=== PATIENT | female | born 1965 | race Caucasian/White ===

== ENCOUNTER → 2018-10-29 09:55 | Outpatient (CLI) | payer BC, SELFPAY ==
[2018-10-08 10:27] VITALS: BMI 19.5
--- NOTE | 2018-10-29 09:59 | ECHOD_ITS ---
Procedure This was a 2D Doppler, Color Flow transthoracic echocardiogram. The exam was of adequate technical quality. Exam performed in department. Left Ventricle Normal LV size. Left ventricular systolic function is normal. The estimated ejection fraction is 60 %. No evidence for diastolic dysfunction. No regional wall motion abnormalities noted. Right Ventricle Normal RV size. Normal systolic function. Atria Normal left atrium. Normal right atrium. No doppler evidence for ASD. Mitral Valve There is no mitral annular calcification. Normal mitral valve. Trivial mitral valve insufficiency. Tricuspid Valve Normal tricuspid valve. Mild (1+) tricuspid valve insufficiency. Right ventricular systolic pressure estimated to be 24 mmHg. Aortic Valve Trisinus/trileaflet aortic valve. Mild diffuse aortic valve thickening. Pulmonic Valve The pulmonic valve is not well visualized. Great Vessels Normal sized aortic root. Pericardium/Pleural No pericardial effusion. MMode/2D Measurements & Calculations LVIDd: 3.6 cm IVSd: 0.75 cm Ao root diam: 3.6 cm LVIDs: 2.5 cm LVPWd: 0.88 cm RVDd: 2.4 cm FS: 32.0 % LAV(MOD-bp): 41.6 ml LA A4 area: 14.4 cm2 LA dimension(2D): 2.4 cm LAV(MOD-bp) Indexed: 28.0 ml/m2 LAV(MOD-sp2): 39.1 ml LAV(MOD-sp4): 39.8 ml RA A4 area: 14.2 cm2 Doppler Measurements & Calculations MV E max koko: 85.0 cm/sec Lat Peak E' Koko: 11.2 cm/sec Med Peak E' Koko: 11.7 cm/sec MV A max koko: 51.9 cm/sec E/E' lat: 7.6 E/E' med: 7.3 MV E/A: 1.6 Ao V2 max: 89.9 cm/sec LV V1 max: 76.3 cm/sec PA V2 max: 66.2 cm/sec Ao max P.2 mmHg LV V1 max P.3 mmHg TR max koko: 225.8 cm/sec TR max P.5 mmHg Interpretation Summary Left ventricular systolic function is normal. The estimated ejection fraction is 60 %. Trivial mitral valve insufficiency. Mild (1+) tricuspid valve insufficiency. Mild diffuse aortic valve thickening. Right ventricular systolic pressure estimated to be 24 mmHg. No evidence for diastolic dysfunction. Ordering Physician: Evan Hendricks Referring Physician: Jackson Oates Performed By: Afia Mohamud, NADIACS, RVT
--- NOTE | 2018-10-29 10:05 | AAVD_ITS ---
Reason For Study: palpable abdominal aorta Aorta Measurements Aorta Doppler Measurements Proximal aorta measures1.40 x 1.38cm. in cross- Peak systolic flow velocities within the proximal sectional axis. aorta measure 108 cm/sec. Proximal aorta measures1.36cm. in longitudinal Peak systolic flow velocities within the mid aorta axis. measure 93.9 cm/sec. Mid aorta measures1.33 x 1.43cm. in cross- Peak systolic flow velocities within the distal sectional axis. aorta measure 94.9 cm/sec. Mid aorta measures1.3.9cm. in longitudinal axis. Distal aorta measures1.42 x 1.50cm. in cross- sectional axis. Distal aorta measures1.39cm. in longitudinal axis. Left Iliac Artery Left iliac artery measures .835 cm. in the longitudinal axis. Left iliac artery measures .775 x .785 cm. in the cross-sectional axis. Peak systolic velocity in the left iliac artery measures 83.0 cm/sec. Right Iliac Artery Right iliac artery measures .685 cm. in the longitudinal axis. Right iliac artery measures .698 x .734 cm. in the cross-sectional axis. Peak systolic velocity in the right iliac artery measures 116 cm/sec. Procedure The exam was diagnostic. Exam performed in department. Interpretation Summary 1. no aortoiliac stenosis or aneurysm. Ordering Physician: Evan Hendricks Performed By: Anand Pisano RVT
--- NOTE | 2018-11-02 13:05 | STRESSREP ---
Stress Test Report Date: 10-29-2018 Procedure: Exercise tolerance test Indications: Palpitations, chest discomfort Consent: Per the patient Procedure: The patient exercised on a Yuan protocol for 11 minutes completing Stage 3 and 2 minutes of Stage II achieving a peak heart rate of 142 bpm (86 % predicted maximal heart rate) with a peak blood pressure 118/68 mmHg and a peak MET capacity of approximately 13 MET's. The baseline ECG demonstrated pannus bradycardia. The peak exercise ECG demonstrated no obvious ECG changes. There was an isolated PVC during exercise. The functional capacity was considered good. The patient had no complaint of chest discomfort during exercise or recovery. The examination was discontinued secondary to fatigue. Impression: 1. Technically adequate (percent predicted maximal heart rate greater than 85%) exercise tolerance test 2. Peak exercise ECG with no obvious ECG change 3. There was an isolated PVC during exercise This note was generated with [employer] software. It may contain incorrect words, spelling, and punctuation that were not noted in checking the note before signing.
== END ==
PROVIDERS: Family Provider Family Medicine; PCP Family Medicine; Referring Provider Internal Medicine Cardiovascular Disease; Visit Provider Internal Medicine Cardiovascular Disease
DX: R00.2 Palpitations (principal)
CPT/HCPCS: 93017; 93306; 93978

== ENCOUNTER → 2019-01-01 | Outpatient (CLI) | payer BC, SELFPAY ==
[2018-12-30 11:34] VITALS: BMI 18.9
[2019-01-01 07:24] LABS: Hematocrit 39.9 % (37-47); Hemoglobin 13.6 g/dl (12.0-15.0); Mean Corp Hgb Conc 34.1 g/gl (32-36); Mean Corpuscular Hgb 32.2 pg (27.0-32.0); Mean Corpuscular Volume 94.3 fL (81-99); Mean Platelet Vol. 9.6 fl (6.2-12.0); Platelet Count 346 K/mm3 (150-450); RBC Distribution Width CV 13.5 % (11.6-14.6); RBC Distribution Width SD 44.8 fl (35.1-43.9); Red Blood Count 4.23 M/mm3 (4.2-5.4); White Blood Count 4.2 K/mm3 (4.4-11.0)
[2019-01-01 07:29] LABS: Scan Indicated on CBC? Y/N NO
[2019-01-01 08:00] LABS: Anion Gap 6 (5-15); BUN 17 mg/dL (7-18); BUN/Creat Ratio 23.4 RATIO (10-20); Calcium,Total 9.2 mg/dL (8.5-10.1); Chloride 105 mmol/L (98-107); Creatinine, Serum 0.73 mg/dL (0.55-1.02); EST Glomerular Filtration Rate 88 mL/min (>60); Est Glom Filt Rate - Afr Amer 106 mL/min (>60); Glucose 97 mg/dL (74-106); Potassium 4.2 mmol/L (3.5-5.1); Sodium Level 140 mmol/L (136-145)
== END | disposition home or self-care (01) ==
LOC: LAB 06:18
PROVIDERS: Family Provider Family Medicine; PCP Family Medicine; Referring Provider Internal Medicine Cardiovascular Disease; Visit Provider Internal Medicine Cardiovascular Disease
DX: R00.0 Tachycardia, unspecified (principal); R00.2 Palpitations
CPT/HCPCS: 36415; 80048; 85027

== ENCOUNTER 2019-01-05 07:22 | Day surgery (SDC) | payer BC, SELFPAY ==
[2018-12-30 11:34] VITALS: BMI 18.9
--- NOTE | 2019-01-01 06:48 | RAD_ITS ---
STUDY: X-RAY CHEST REASON FOR EXAM: Female, 53 years old. Chest monitor placement clearance. TECHNIQUE: PA and lateral chest COMPARISON: None. FINDINGS: The lungs are clear and expanded. Normal cardiomediastinal silhouette, celina and pleural margins. No acute osseous or upper abdominal process. RAD/Chest PA and Lateral IMPRESSION: No acute cardiopulmonary process. Electronically Signed: Miguel A Banda MD at 17:21 EDT Tel , Service support ,
[2019-01-01 10:08] VITALS: BMI 18.9
--- NOTE | 2019-01-05 08:24 | CL.IE_ITS ---
Patient: VIRGEN LAKHANI Study Date: 01/05/2019 Performing: Avel Marinelli MD : 1965 Age: 53 Gender: female PROCEDURES PERFORMED [id number] OF LOOP RECORDER INDICATIONS Syncope PROCEDURE DETAILS The patient was brought to the Catheterization Lab in the postabsorptive nonsedated state. Infor med consent was obtained prior to the procedure. Local anesthetic was given subcutaneously to the le ft upper chest area with Lidocaine 2%. Incision was made to the left upper chest. ICM Reveal LINQ was inserted into the pocket. Steri-strips applied to Lt chest area. The patient tolerated the procedur e well. Estimated Blood Loss: < 10 mls IMPLANTED / EX-PLANTED DEVICES IMPLANTED DEVICE(S): ICM Reveal LINQ - Armhole Baster Hand: Movie Mouth, Model # [id number] Serial # [id number] DEVICE PARAMETERS CONCLUSIONS / RECOMMENDATIONS Device Conclusions: Successful implantation of a patient activated loop recorder. Device Recommendations: Follow up with Primary Care Physician PROCEDURE MEDICATIONS Versed 1 mg IV Oxygen: 2 L/min via nasal cannula Ancef 1 Gm IV @ 01/05/2019 08:10:10 Signed By Avel Marinelli MD On 01/05/2019 08:23:43 Avel Marinelli MD
== END 2019-01-05 09:25 | disposition home or self-care (01) ==
LOC: CLSP 07:23
PROVIDERS: Family Provider Family Medicine; PCP Family Medicine; Referring Provider Internal Medicine Cardiovascular Disease; Visit Provider Internal Medicine Cardiovascular Disease
DX: R00.2 Palpitations (principal); R00.0 Tachycardia, unspecified; K57.90 Diverticulosis of intestine, part unspecified, without perforation or abscess without bleeding; Z87.891 Personal history of nicotine dependence
CPT/HCPCS: 33285; 71046; 99152; J7040

== ENCOUNTER → 2019-09-23 08:17 | Outpatient (CLI) | payer BC, SELFPAY ==
[2019-07-14 09:58] VITALS: BMI 19.6
--- NOTE | 2019-09-23 08:18 | BI_ITS ---
MAMMOGRAPHY - BILATERAL SCREENING REASON FOR EXAM: Female, 54 years old. Routine annual screening examination. PERTINENT HISTORY: Non-contributory. TECHNIQUE: Digital bilateral breast joshua (3D mammographic acquisition) in the CC and MLO projections. 2-D mediolateral oblique (MLO) and craniocaudad (CC) views of both breasts were obtained. CAD: Full Field Digital Mammography with Computer Added Detection was performed. COMPARISON: Comparison is made with prior outside examination dated March 11, 2017. FINDINGS: Breast Composition: There are scattered areas of fibroglandular density. There are no dominant masses or suspicious calcifications. A loop recording device is seen in the deep mid medial portion of the left breast. No other significant abnormalities are identified. There has been no significant change since the prior study. BI/SCREEN MAMM (CAD) W/JOSHUA BILAT IMPRESSION: Stable bilateral screening mammogram. Yearly follow-up mammogram recommended. (A) ASSESSMENT CATEGORY: BIRADS Category 1: Negative. A letter regarding these results will be sent to the patient by the facility within 30 days. Approximately 10% of breast cancers are not detected by mammography. A normal mammogram should not delay biopsy of a clinically suspicious abnormality. [id number] Electronically Signed: Estrada Coats, at 9:12 EST , Service support ,
== END ==
PROVIDERS: PCP Family Medicine; Referring Provider Obstetrics & Gynecology; Visit Provider Obstetrics & Gynecology
DX: Z12.31 Encounter for screening mammogram for malignant neoplasm of breast (principal)
CPT/HCPCS: 77063; 77067

== ENCOUNTER → 2020-08-16 08:30 | Outpatient (CLI) | payer BC, SELFPAY ==
[2020-01-26 13:21] VITALS: BMI 18.9
--- NOTE | 2020-08-16 08:35 | EKG12_ITS ---
Test Reason : PRE OP Blood Pressure : / mmHG Vent. Rate : 063 BPM Atrial Rate : 063 BPM P-R Int : 152 ms QRS Dur : 082 ms QT Int : 390 ms P-R-T Axes : 049 087 082 degrees QTc Int : 399 ms Normal sinus rhythm Normal ECG Confirmed by HILTON WILSON, CARMEN ([id number]), health editor YUVAL GONSALEZ ([id number]) on 08/17/2020 10:42:10 AM Referred By: Armand Pineda Confirmed By:CARMEN CANELA MD
[2020-08-16 09:13] LABS: Hematocrit 39.6 % (37-47); Hemoglobin 13.2 g/dL (12.0-15.0); Mean Corp Hgb Conc 33.3 g/dL (32-36); Mean Corpuscular Hgb 32.5 pg (27.0-32.0); Mean Corpuscular Volume 97.5 fL (81-99); Mean Platelet Vol. 8.8 fl (6.2-12.0); Platelet Count 407 K/mm3 (150-450); RBC Distribution Width CV 13.2 % (11.6-14.6); RBC Distribution Width SD 47.4 fl (35.1-43.9); Red Blood Count 4.06 M/mm3 (4.2-5.4); White Blood Count 5.8 K/mm3 (4.4-11.0)
[2020-08-16 09:59] LABS: Anion Gap 4 (5-15); BUN 14 mg/dL (7-18); BUN/Creat Ratio 21.7 RATIO (10-20); Calcium,Total 9.2 mg/dL (8.5-10.1); Chloride 107 mmol/L (98-107); Creatinine, Serum 0.64 mg/dL (0.55-1.02); EST Glomerular Filtration Rate 101 mL/min (>60); Est Glom Filt Rate - Afr Amer 122 mL/min (>60); Glucose 91 mg/dL (74-106); Potassium 4.3 mmol/L (3.5-5.1); Sodium Level 140 mmol/L (136-145)
== END ==
PROVIDERS: PCP Family Medicine; Referring Provider Physician Assistant; Visit Provider Physician Assistant
DX: Z01.810 Encounter for preprocedural cardiovascular examination (principal); Z01.818 Encounter for other preprocedural examination; Z11.59 Encounter for screening for other viral diseases
CPT/HCPCS: 36415; 80048; 85027; 87635; 93005; C9803; U0005; U0003

== ENCOUNTER → 2021-04-11 09:28 | Outpatient (CLI) | payer BC, SELFPAY ==
[2020-09-25 16:07] VITALS: BMI 18.4
--- NOTE | 2021-04-11 09:35 | BD_ITS ---
STUDY: DUAL ENERGY X-RAY ABSORPTIOMETRY / DXA REASON FOR EXAM: Female, 56 years old. Screening TECHNIQUE: Bone Mineral Density (BMD) measurements of lumbar spine and bilateral hips were obtained. COMPARISON: None. FINDINGS: Lumbar Spine (L1-L4): g/cm2 (0.967) / T-score (-0.7) / Z-score (0.6) Findings are suggestive of normal bone density with a low fracture risk. Left Femur Total: g/cm2 (0.808) / T-score (-1.1) / Z-score (-0.2) Left Femoral Neck: g/cm2 (0.761) / T-score (-0.8) / Z-score (0.4) Right Femur Total: g/cm2 (0.832) / T-score (-0.9) / Z-score (0.0) Right Femoral Neck: g/cm2 (0.771) / T-score (-0.7) / Z-score (0.5) BD/Dexa Bone Density Study IMPRESSION: The patient is considered osteopenic as outlined below according to World Luis Organization (WHO) criteria with a low fracture risk. Reference Information: The T-score is the number of standard deviations above or below the standard which is normal for young adults at their peak bone mineral density. The World Health Organization (WHO) interprets the T-scores as follows: Above -1 Normal bone density Between -1 and -2.5 Osteopenia Equal to / or below -2.5 Osteoporosis As a practical clinical guideline, osteopenia may be graded as follows: Mild -1 through -1.5 Moderate -1.6 through -2.0 Severe -2.1 through -2.4 The Z-score is the number of standard deviations above or below age-matched controls. A Z-score of less than -1.5 would be considered abnormal. References: 1. NIH Osteoporosis and Related Bone Diseases www osteo.org 2. International Society for Clinical Densitometry www iscd.org 3. National Osteoporosis Foundation www nof.org Electronically Signed: Estrada Coats MD at 14:23 EDT , Service support ,
--- NOTE | 2021-04-11 09:47 | BI_ITS ---
MAMMOGRAPHY - BILATERAL SCREENING 3-D TOMOSYNTHESIS REASON FOR EXAM: Female, 56 years old. screening PERTINENT HISTORY: No significant family history. TECHNIQUE: 2-D mammograms and 3-D Tomosynthesis of the breast (s) were performed. CAD was performed. COMPARISON: 09/23/2019 FINDINGS: The breast composition is composed of scattered fibroglandular density. Scattered benign calcifications are seen. No dense spiculated masses or suspicious microcalcifications are identified. No architectural distortion is identified. There is no skin thickening or retraction. There has been no significant change since the prior study. BI/SCRN MAMM (CAD)W/JOSHUA BILAT IMPRESSION: No mammographic signs of malignancy. Routine yearly mammograms recommended. ASSESSMENT CATEGORY: BIRADS Category 1: Negative. A letter regarding these results will be sent to the patient by the facility within 30 days. FOLLOW UP RECOMMENDATION: Yearly follow up mammogram recommended. (A) Approximately 10% of breast cancers are not detected by mammography. A normal mammogram should not delay biopsy of a clinically suspicious abnormality. Electronically Signed: Miguel A Damon MD at 10:55 EDT Tel , Service support ,
== END ==
PROVIDERS: PCP Physician Assistant; Referring Provider Obstetrics & Gynecology; Visit Provider Obstetrics & Gynecology
DX: Z12.31 Encounter for screening mammogram for malignant neoplasm of breast (principal); E28.39 Other primary ovarian failure; R63.6 Underweight
CPT/HCPCS: 77063; 77067; 77080

== ENCOUNTER 2021-07-11 06:47 | Day surgery (SDC) | payer BC, SELFPAY ==
[2021-07-09 11:48] VITALS: BMI 18.0
--- NOTE | 2021-07-11 08:00 | CL.IE_ITS ---
Patient: VIRGEN LAKHANI Study Date: 07/11/2021 Performing: Avel Marinelli MD : 1965 Age: 56 Gender: female PROCEDURES PERFORMED [id number] OF LOOP RECORDER INDICATIONS palpitations,tachycardia PROCEDURE DETAILS The patient was brought to the Catheterization Lab in the postabsorptive nonsedated state. Infor med consent was obtained prior to the procedure. Local anesthetic was given subcutaneously to the le ft upper chest area with Lidocaine 2%. Incision was made to the left upper chest. ICM Loop Recorder w as removed. Steri-strips applied to left subclavicular incision. The patient tolerated the procedure well. Estimated Blood Loss: 5 ml's IMPLANTED / EX-PLANTED DEVICES DEVICE PARAMETERS CONCLUSIONS / RECOMMENDATIONS Device Conclusions: Successful removal of a patient activated loop recorder. Device Recommendations: Follow up with Primary Care Physician PROCEDURE MEDICATIONS Versed 1 mg IV Oxygen: 2 L/min via nasal cannula Ancef 1 Gm IV @ 07/11/2021 07:27:32 Signed By Avel Marinelli MD On 07/11/2021 08:00:06 Avel Marinelli MD
== END 2021-07-11 09:00 | disposition home or self-care (01) ==
LOC: CLSP 06:49
PROVIDERS: PCP Physician Assistant; Referring Provider Internal Medicine Cardiovascular Disease; Visit Provider Internal Medicine Cardiovascular Disease
DX: Z45.09 Encounter for adjustment and management of other cardiac device (principal); R00.2 Palpitations; R00.0 Tachycardia, unspecified; Z87.891 Personal history of nicotine dependence
CPT/HCPCS: 33286; 99152

== ENCOUNTER → 2021-07-18 | Outpatient (CLI) | payer BC, SELFPAY | END | disposition home or self-care (01) | LOC: LABSPEC 12:05 | PROVIDERS: PCP Physician Assistant; Referring Provider Nurse Practitioner Women's Health; Visit Provider Nurse Practitioner Women's Health | DX: R30.0 Dysuria (principal) | CPT/HCPCS: 87086; 87088; 87186 ==

== ENCOUNTER 2022-07-09 09:14 | Outpatient (CLI) | payer BC, SELFPAY ==
--- NOTE | 2022-07-09 09:16 | BI_ITS ---
MAMMOGRAPHY - BILATERAL SCREENING REASON FOR EXAM: Female, 57 years old. Routine annual screening examination. PERTINENT HISTORY: Non-contributory. TECHNIQUE: Digital bilateral breast joshua (3D mammographic acquisition) in the CC and MLO projections. 2-D mediolateral oblique (MLO) and craniocaudad (CC) views of both breasts were obtained. CAD: Full Field Digital Mammography with Computer Added Detection was performed. COMPARISON: Comparison is made with prior study dated 04/11/2021 and 09/23/2019. FINDINGS: Breast Composition: There are scattered areas of fibroglandular density. There are no dominant masses or suspicious calcifications. No other significant abnormalities are identified. There has been no significant change since the prior study. BI/SCRN MAMM (CAD)W/JOSHUA BILAT IMPRESSION: Stable bilateral screening mammogram. Yearly follow-up mammogram recommended. (A) ASSESSMENT CATEGORY: BIRADS Category 1: Negative. A letter regarding these results will be sent to the patient by the facility within 30 days. Approximately 10% of breast cancers are not detected by mammography. A normal mammogram should not delay biopsy of a clinically suspicious abnormality. [id number] Electronically Signed: Estrada Coats MD at 9:50 EST ,
== END 2022-07-09 23:59 | disposition home or self-care (01) ==
PROVIDERS: PCP Physician Assistant; Referring Provider Obstetrics & Gynecology; Visit Provider Obstetrics & Gynecology
DX: Z12.31 Encounter for screening mammogram for malignant neoplasm of breast (principal); R35.0 Frequency of micturition
CPT/HCPCS: 77063; 77067; 87077; 87086; 87088; 87186

== ENCOUNTER → 2022-09-17 | Outpatient (CLI) | payer BC, SELFPAY | END | disposition home or self-care (01) | LOC: LABSPEC 14:41 | PROVIDERS: PCP Physician Assistant; Referring Provider Obstetrics & Gynecology; Visit Provider Obstetrics & Gynecology | DX: R30.0 Dysuria (principal) | CPT/HCPCS: 87077; 87086; 87088; 87186 ==

== ENCOUNTER → 2023-07-10 | Outpatient (CLI) | payer BC, SELFPAY ==
--- NOTE | 2023-07-10 08:19 | BI_ITS ---
MAMMOGRAPHY - BILATERAL SCREENING REASON FOR EXAM: Female, 58 years old. Routine annual screening examination. PERTINENT HISTORY: Non-contributory. TECHNIQUE: Digital bilateral breast joshua (3D mammographic acquisition) in the CC and MLO projections. 2-D mediolateral oblique (MLO) and craniocaudad (CC) views of both breasts were obtained. CAD: Full Field Digital Mammography with Computer Added Detection was performed. COMPARISON: Comparison is made with prior examination of July 09, 2022 and April 11, 2021. FINDINGS: Breast Composition: There are scattered areas of fibroglandular density. There are no dominant masses or suspicious calcifications. No other significant abnormalities are identified. There has been no significant change since the prior study. BI/SCRN MAMM (CAD)W/JOSHUA BILAT IMPRESSION: Stable bilateral screening mammogram. Yearly follow-up mammogram recommended. (A) ASSESSMENT CATEGORY: BIRADS Category 1: Negative. A letter regarding these results will be sent to the patient by the facility within 30 days. Approximately 10% of breast cancers are not detected by mammography. A normal mammogram should not delay biopsy of a clinically suspicious abnormality. [id number] Electronically Signed: Estrada Coats MD at 12:20 EST ,
== END | disposition home or self-care (01) ==
LOC: OPBI 08:19
PROVIDERS: PCP Physician Assistant; Referring Provider Obstetrics & Gynecology; Visit Provider Obstetrics & Gynecology
DX: Z12.31 Encounter for screening mammogram for malignant neoplasm of breast (principal)
CPT/HCPCS: 77063; 77067

== ENCOUNTER 2024-03-25 12:36 | Emergency (ER) | payer OTHER, SELFPAY ==
[2024-03-25 12:37] VITALS: BP 116/77; PULSE 75; RESP 16; TEMP 36.8; O2SAT 100; BMI 19.7
--- NOTE | 2024-03-25 12:40 | EKG12_ITS ---
Test Reason : CHEST PRESSURE Blood Pressure : / mmHG Vent. Rate : 075 BPM Atrial Rate : 075 BPM P-R Int : 138 ms QRS Dur : 076 ms QT Int : 380 ms P-R-T Axes : 035 081 063 degrees QTc Int : 424 ms Normal sinus rhythm Nonspecific ST abnormality Abnormal ECG Confirmed by Mukul Salgado ([id number]), editorial assistant KHALIDA PARHAM ([id number]) on 03/29/2024 8:54:49 AM Referred By: COURTNEY/DREW Confirmed By:Mukul Salgado
--- NOTE | 2024-03-25 12:45 | RAD_ITS ---
INDICATION: chest pain EXAMINATION/TECHNIQUE: X-RAY - XR Chest 1 View COMPARISON: Prior study dated: 01/01/2019 FINDINGS: LINES/DEVICES: None. LUNGS: No consolidation, edema or effusion. No pneumothorax. MEDIASTINUM AND CARDIOVASCULAR STRUCTURES: Cardiac silhouette not enlarged. Central airways and mediastinal contour are unremarkable. BONES AND SOFT TISSUES: Unremarkable. RAD/Chest 1 View (Portable) IMPRESSION: No radiographic evidence of acute cardiopulmonary disease. Electronically Signed: Tanner Montero MD at 12:58 EDT ,
[2024-03-25 12:48] LABS: Absolute Lymphocyte Count 1.96 X10^3/uL (0.83-4.51); Absolute Neutrophil Count 4.2 X10^3/uL (2.0-7.7); Basophil# 0.04 X10^3/uL; Basophil% 0.6 % (0-1); Eosinophil# 0.01 X10^3/uL; Eosinophils% 0.2 % (0-5); Hematocrit 39.5 % (37-47); Hemoglobin 13.1 g/dL (12.0-15.0); Lymphocyte # 1.96 X10^3/ul (0.83-4.51); Lymphocyte % 29.5 % (19-41); Mean Corp Hgb Conc 33.2 g/dL (32-36); Mean Corpuscular Hgb 32.5 pg (27.0-32.0); Mean Platelet Vol. 8.7 fl (6.2-12.0); Monocyte# 0.43 X10^3/uL; Monocyte% 6.5 % (0-10); NRBC Flagged by Analyzer 0 % (0-5); Neutrophil # 4.19 X10^3/uL (2.7-7.7); Neutrophil % 62.9 % (47-70); Platelet Count 368 K/mm3 (150-450); RBC Distribution Width CV 13.3 % (11.6-14.6); RBC Distribution Width SD 48.6 fl (35.1-43.9); Red Blood Count 4.03 M/mm3 (4.2-5.4); White Blood Count 6.7 K/mm3 (4.4-11.0)
--- NOTE | 2024-03-25 12:56 | ED.VIS.CHEST ---
HPI History of Present Illness Chief Complaint: Chest Pain Detail of Chief Complaint: Air bubble in my chest resolved. Informant: patient Onset/Context/Timing Onset: Today and Hours Activity at onset: gradual Timing: Continuous and - (Now resolved.) Location: Substernal and - (And epigastric) Current Severity: Gone Maximum Severity: Mild Worsened By: Nothing Relieved By: Nothing Associated Symptoms: Negative for Nausea, Vomiting or Diaphoresis Narrative Narrative: 59-year-old female history of hemochromatosis and vertigo. Woke up this morning had vertigo. She said it intermittently for years. Had it worked up in the past. She went to work and while at work sitting at a desk had nonexertional chest discomfort. She describes it as an air bubble in my lower chest upper abdominal area. Lasted about an hour and since resolved. Denies any recent exertional chest pain or any exertional shortness of breath. No prior heart catheterization and does not remember any prior stress test. No history of DVT or PE or risk factors. No leg pain or swelling. No hemoptysis. No pleuritic pain. Prior Similar Symptoms: No Recent Illness/Hospitalization: No CVD Risk Factors: Negative for Hypertension, Diabetes or Hypercholesterolemia PE Risk Factors: Negative for Recent Travel/Surgery, Recent Immobilization, Prior DVT or PE, Cancer or OCP + Smoking + >/=35 TAD Risk Factors: Negative for Marfan's Syndrome [facility] Medical History Sinus tachycardia Palpitations Diverticular disease Allergy/AdvReac Type Severity Reaction Status Date / Time aspirin Allergy Mild stomach Verified 03/25/24 12:41 spasms codeine Allergy Mild stomach Verified 03/25/24 12:41 spasms Family History Mother Diabetes Myocardial infarction Atrial fibrillation Grandmother Cancer Father CAD (coronary artery disease) History of coronary artery bypass surgery Surgical History History of rotator cuff surgery (~08/2020) History of loop recorder (07/11/21) S/P colectomy History of total abdominal hysterectomy left elbow surgery bladder sling S/P carpal tunnel release S/P cholecystectomy Social History Smoking Status: Former smoker alcohol intake: current details: occasionally substance use type: does not use caffeine: Yes what type of physical activity do you participate in: running and other details: kick boxing frequency: 5-6 times per week seatbelt use: always do you feel safe at home: Yes additional social history: - Eduardo-Works at [employer] Patient owns [employer] [facility] ROS ROS ED ROS Narrative Denies recent illness. Constitutional Constitutional ED: Denies fever(s) Eyes Eyes: Reports none ENT ENT ED: Denies ear pain Cardiovascular Cardiovascular: Reports chest pain; Denies palpitations or racing heartbeat Respiratory/Chest Respiratory/Chest: Denies cough or dyspnea Gastrointestinal Gastrointestinal: Denies abdominal pain, constipation, diarrhea, nausea or vomiting Genitourinary Genitourinary ED: Denies dysuria or hematuria Musculoskeletal Musculoskeletal: Denies arthralgias Integumentary Denies abscess Neurologic Neurologic: Denies headache(s) Psychiatric Psychiatric: Denies anxiety Endocrine Endocrinology: Denies cold intolerance Hematologic/Lymphatic Hematologic/Lymphatic: Denies easy bleeding, easy bruising or lymphadenopathy Allergic/Immunologic Allergic/Immunologic ED: Denies mouth swelling, tongue swelling or urticaria EXAM Physical Exam Narrative Exam Narrative: Well-appearing 59-year-old female. Vital signs are stable afebrile. Pulse ox 100% on room air no signs of hypoxia. H EENT exam unremarkable. Neck nontender no JVD. Lungs clear to auscultation bilaterally. Heart regular rate rhythm rate about 75 no murmur. Chest wall and ribs nontender. Abdomen soft nontender. Normal bowel sounds no peritoneal signs. No right upper or right lower quadrant tenderness. No hernia or mass. No distention. Moving all 4 extremities. 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 Equal symmetrical radial pulses. Dorsi plantarflexion intact. Calves are nontender without edema or cords. Back nontender. She is awake alert. No focal motor deficits. Benign exam. at bedside. Const Vital Signs: 03/25/24 12:37 03/25/24 12:37 03/25/24 12:41 Temperature 98.2 F Temperature Source Oral Pulse Rate 75 Respiratory Rate 16 Respiratory Effort Blood Pressure 116/77 Blood Pressure Mean 90 Pulse Ox 100 Oxygen Delivery Method Room Air Room Air 03/25/24 12:41 03/25/24 13:37 03/25/24 14:00 Temperature Temperature Source Pulse Rate 71 72 Respiratory Rate 12 23 H Respiratory Effort Normal Blood Pressure 113/72 111/69 Blood Pressure Mean 85 83 Pulse Ox 98 97 Oxygen Delivery Method Room Air Room Air Positive well nourished and well developed; Negative for obese, cachectic, contractures or unkempt General Appearance ED: well developed and NAD; Negative for unkempt, cachectic, contractures or pallor Nutritional Appearance: Negative for cachectic or obese HEENT Reports TM's clear and moist mucous membranes normocephalic and atraumatic; Negative for trauma or tenderness Tympanic Membrane ED: Yes TM's clear Eyes PERRL and EOMs intact bilaterally General Eye ED: Negative for pale conjunctiva or scleral icterus Neck no lymphadenopathy, supple and no JVD General: Negative for tenderness Chest Wall inspection of chest normal and palpation of chest normal Chest: Negative for tenderness Resp normal respiratory effort and clear to auscultation bilaterally Effort and Inspection: Negative for respiratory distress Auscultation: Negative for rales, rhonchi, wheezes or diminished lung sounds Cardio regular rate, regular rhythm, S1 normal heart sound, S2 normal heart sound and no murmurs Rate: Negative for bradycardia or tachycardic Rhythm: Negative for abnormal rhythm Peripheral Pulses: pulses 2+ throughout GI normal to inspection, nondistended, normoactive bowel sounds, soft to palpation, non-tender, non-distended and no masses Back/Spine no CVA tenderness and no thoracic nor lumbar tenderness General Back: Negative for CVA tenderness Cervical Spine: Negative for cervical spine tenderness Extremity normal to inspection General Extremety ED: Negative for edema, pulses abnormal or tenderness General Extremity: Negative for edema or pulses abnormal Neuro oriented x3 and CN's II-XII intact bilaterally Sensorium / Orientation: awake, alert, oriented to person, oriented to place and oriented to time; Negative for confused, lethargic or stuporous Sensory Exam: No sensory level loss detected Motor Exam: strength 5/5 throughout; Negative for general weakness or strength abnormal Psych mental status grossly normal Appearance: Negative for unkempt Attitude: No agitated Mood & Affect: Negative for depressed, anxious or tearful Skin no rashes or lesions noted and no wounds General Skin Exam: Negative for jaundice, pallor or other Rashes: No rashes noted Trauma: Negative for abrasion, laceration or puncture Heart Score History: Slightly/Non-Suspicious ECG: Normal Age: >45 - <65 years Risk Factors: No Risk Factors Troponin: </= Normal Limit Score: 1 MDM MDM MDM Narrative Medical decision making narrative: 59-year-old female history of vertigo and vertiginous type symptoms. Positive Hallpike. Normal neurologic exam. She be given meclizine. She has atypical nonexertional chest discomfort think is little likely to be cardiac. She undergo a cardiac workup. I do not think she needs a CAT scan of her head. History & Record Review Discussion w/independent historian: Patient and Family Additional record(s) reviewed:: Prior inpatient record, Prior outpatient record, Prior ED visit and Prior labs Lab Data Attestation: I reviewed the patient's lab results. Lab results narrative: CBC unremarkable. White count of 6. H&H 13 and 39. Platelets 368 Chemistries show a gap of 8. Normal BUN and creatinine. Glucose 162. Initial troponin 3. 2-hour troponin is Chest x-ray unremarkable. Labs: Laboratory Results - last 24 hr 03/25/24 12:40 WBC 6.7 RBC 4.03 L Hgb 13.1 Hct 39.5 MCV 98.0 MCH 32.5 H MCHC 33.2 RDW Std Deviation 48.6 H RDW Coeff of Jose 13.3 Plt Count 368 MPV 8.7 Immature Gran % (Auto) 0.300 Neut % (Auto) 62.9 Lymph % (Auto) 29.5 [place] % (Auto) 6.5 Eos % (Auto) 0.2 Baso % (Auto) 0.6 Absolute Neuts (auto) 4.2 Absolute Lymphs (auto) 1.96 Nucleated RBC % 0 Sodium 138 Potassium 3.5 Chloride 103 Carbon Dioxide 27.0 Anion Gap 8 BUN 18 Creatinine 0.83 Estim Creat Clear Calc 56.74 Est GFR (MDRD) Af Amer 90 Est GFR (MDRD) Non-Af 75 BUN/Creatinine Ratio 21.8 H Glucose 162 H Calcium 8.7 Troponin I High Sens 3 Radiography Chest X-Ray - ED: 1 View, Read by ED Physician, Heart, Lungs, Mediastinum, Bony Structures and No Acute Disease Diagnostic Testing: Clinical Impression(s) from Imaging Studies Chest X-Ray 03/25/24 12:45 IMPRESSION: No radiographic evidence of acute cardiopulmonary disease. Electronically Signed: Tanner Montero MD at 12:58 EDT , Chest x-ray, portable, single view interpreted both by myself and the radiologist shows no acute abnormality. Normal cardiac silhouette. Normal mediastinum. Rhythm Strip Rhythm Strip: Sinus Rhythm Rate: 75 Ectopy: None EKG Initial EKG: Attestation: I personally reviewed and interpreted this EKG as follows: Interpretation: Sinus Rhythm and No Acute Injury Pattern Comments: Normal sinus rhythm rate is 75 no acute signs of WI or ischemia. Management Discussion w/another healthcare provider: Other Discharge Plan Triage Chief Complaint: Chest Pain ED Provider: Calvin Gutierrez Dx/Rx/DC Orders Primary Care Provider: Juaquin Hernandez Referrals: Juaquin Hernandez PA [Primary Care Provider] - Print Language: Tristanian
[2024-03-25 13:07] LABS: Anion Gap 8 (5-15); BUN 18 mg/dL (7-18); BUN/Creat Ratio 21.8 RATIO (10-20); Calcium,Total 8.7 mg/dL (8.5-10.1); Chloride 103 mmol/L (98-107); Creatinine, Serum 0.83 mg/dL (0.55-1.02); EST Glomerular Filtration Rate 75 mL/min (>60); Est Glom Filt Rate - Afr Amer 90 mL/min (>60); Estimated Creatinine Clearance 56.74 ml/min; Glucose 162 mg/dL (74-106); Potassium 3.5 mmol/L (3.5-5.1); Sodium Level 138 mmol/L (136-145); Troponin-I HS 3 pg/mL (3.0-54.0)
[2024-03-25 13:37] VITALS: BP 113/72; PULSE 71; RESP 12; O2SAT 98
[2024-03-25 14:00] VITALS: BP 111/69; PULSE 72; RESP 23; O2SAT 97
[2024-03-25 15:00] VITALS: BP 109/79; PULSE 67; RESP 17; O2SAT 96
[2024-03-25 15:18] LABS: Troponin-I HS < 3 pg/mL (3.0-54.0)
[2024-03-25 15:26] VITALS: BP 108/72; PULSE 62; RESP 15; TEMP 36.4; O2SAT 97
== END 2024-03-25 15:31 | disposition home or self-care (01) ==
PROVIDERS: Emergency Provider Emergency Medicine; PCP Physician Assistant; Visit Provider Emergency Medicine
DX: R07.9 Chest pain, unspecified (principal); Z87.891 Personal history of nicotine dependence; Z90.49 Acquired absence of other specified parts of digestive tract; Z90.710 Acquired absence of both cervix and uterus; R42 Dizziness and giddiness
CPT/HCPCS: 71045; 80048; 84484; 85025; 93005; 99284; A4216

== ENCOUNTER → 2024-07-23 | Outpatient (CLI) | payer OTHER, SELFPAY ==
--- NOTE | 2024-07-23 09:38 | BI_ITS ---
MAMMOGRAPHY - BILATERAL SCREENING REASON FOR EXAM: Female, 59 years old. Routine annual screening examination. PERTINENT HISTORY: Non-contributory. TECHNIQUE: Digital bilateral breast joshua (3D mammographic acquisition) in the CC and MLO projections. 2-D mediolateral oblique (MLO) and craniocaudad (CC) views of both breasts were obtained. CAD: Full Field Digital Mammography with Computer Added Detection was performed. COMPARISON: Comparison is made with prior study dated July 10, 2023 and July 09, 2022. FINDINGS: Breast Composition: There are scattered areas of fibroglandular density. There are no dominant masses or suspicious calcifications. No other significant abnormalities are identified. There has been no significant change since the prior study. BI/SCRN MAMM (CAD)W/JOSHUA BILAT IMPRESSION: Stable bilateral screening mammogram. Yearly follow-up mammogram recommended. (A) ASSESSMENT CATEGORY: BIRADS Category 1: Negative. A letter regarding these results will be sent to the patient by the facility within 30 days. Approximately 10% of breast cancers are not detected by mammography. A normal mammogram should not delay biopsy of a clinically suspicious abnormality. [id number] Electronically Signed: Estrada Coats MD at 10:14 EST ,
== END | disposition home or self-care (01) ==
LOC: OPBI 09:37
PROVIDERS: PCP Physician Assistant; Referring Provider Obstetrics & Gynecology; Visit Provider Obstetrics & Gynecology
DX: Z12.31 Encounter for screening mammogram for malignant neoplasm of breast (principal)
CPT/HCPCS: 77063; 77067

== ENCOUNTER 2024-09-27 11:16 | Emergency (ER) | payer OTHER, SELFPAY ==
[2024-09-27 11:17] VITALS: BP 117/78; PULSE 70; RESP 18; TEMP 36.9; O2SAT 100; BMI 19.7
--- NOTE | 2024-09-27 11:43 | EX.ED.DYSGE1 ---
HPI <RICARDO Newberry - Last Filed: 09/27/24 17:11> History of Present Illness Chief Complaint: Bite Narrative Narrative: Patient presenting today due to concerns for an infection resulting from a dog bite to her right hand. Her dog was stressed because of the storm last night and she was try to calm him down when he bit her right third finger yesterday evening. This morning, the area began looking red and she is now noticing streaking that is going up her right forearm. She has had chills but denies fevers. She denies a history of diabetes or any immunocompromising conditions. She has had no nausea or vomiting. Her tetanus is not up-to-date. PFSH <RICARDO Newberry - Last Filed: 09/27/24 17:11> [facility] Medical History Sinus tachycardia Palpitations Diverticular disease Home Medications ?Medication ?Instructions ?Recorded ?Last Taken ?Type meloxicam 7.5 mg tablet 7.5 mg PO QDAY 07/12/24 Unknown History amoxicillin 875 mg-potassium 875 mg PO Q12H #20 TABLETS 09/27/24 Unknown Rx clavulanate 125 mg tablet Allergy/AdvReac Type Severity Reaction Status Date / Time aspirin Allergy Mild stomach Verified 09/27/24 11:16 spasms codeine Allergy Mild stomach Verified 09/27/24 11:16 spasms Family History Mother Diabetes Myocardial infarction Atrial fibrillation Grandmother Cancer Father CAD (coronary artery disease) History of coronary artery bypass surgery Surgical History History of rotator cuff surgery (~08/2020) History of loop recorder (07/11/21) S/P colectomy History of total abdominal hysterectomy left elbow surgery bladder sling S/P carpal tunnel release S/P cholecystectomy Social History Smoking Status: Former smoker alcohol intake: current details: occasionally substance use type: does not use caffeine: Yes what type of physical activity do you participate in: running and other details: kick boxing frequency: 3-4 times per week seatbelt use: always do you feel safe at home: Yes additional social history: - Eduardo-Works at [employer] Patient owns [employer] <RICARDO Newberry - Last Filed: 09/27/24 17:11> ROS ED Constitutional Constitutional ED: Reports chills; Denies fever(s) Cardiovascular Cardiovascular: Denies chest pain Respiratory/Chest Respiratory/Chest: Denies cough or dyspnea Gastrointestinal Gastrointestinal: Denies abdominal pain, nausea or vomiting Musculoskeletal Musculoskeletal: Reports other Details: R hand pain Integumentary Reports other Details: Puncture wound R 3rd finger ; Denies abscess Neurologic Neurologic: Denies weakness EXAM <RICARDO Newberry - Last Filed: 09/27/24 17:11> Physical Exam Const Vital Signs: 09/27/24 11:17 09/27/24 13:15 09/27/24 13:16 Temperature 98.4 F 98.4 F Temperature Source Oral Pulse Rate 70 70 73 Respiratory Rate 18 18 19 H Blood Pressure 117/78 117/78 Blood Pressure Mean 91 91 Pulse Ox 100 100 97 Oxygen Delivery Method Room Air Room Air Positive well nourished, well developed and no apparent distress General Appearance ED: well developed HEENT Reports normocephalic and head/scalp atraumatic Mouth ED: Yes moist mucous membranes normal Eyes PERRL and EOMs intact bilaterally Neck full ROM and supple Chest Wall inspection of chest normal Resp normal respiratory effort and clear to auscultation bilaterally Cardio regular rate and regular rhythm Back/Spine normal ROM and normal to inspection Extremity full ROM Extremity Narrative: Small puncture wound to the right third proximal phalanx with surrounding erythema and edema, no purulent discharge, no abscess formation. There is red streaking that goes up the dorsal aspect of her right forearm to the elbow Small abrasion to the palmar aspect of the right second distal phalanx that does not appear infected. Right radial pulse 2+, good cap refill, sensation intact. Neuro oriented x3, CN's II-XII intact bilaterally, moves all extremities, no focal motor deficits and no sensory deficits noted Sensorium / Orientation: awake and alert Psych mental status grossly normal and thought process normal Skin Skin Narrative: See extremities exam. <Dr. Tomasz Calvert MD - Last Filed: 09/27/24 12:45> Physical Exam Const Vital Signs: 09/27/24 11:17 09/27/24 13:15 09/27/24 13:16 Temperature 98.4 F 98.4 F Temperature Source Oral Pulse Rate 70 70 73 Respiratory Rate 18 18 19 H Blood Pressure 117/78 117/78 Blood Pressure Mean 91 91 Pulse Ox 100 100 97 Oxygen Delivery Method Room Air Room Air MDM <RICARDO Newberry - Last Filed: 09/27/24 17:11> [facility] Narrative Medical decision making narrative: Patient presents today with concerns for an infected dog bite to her right hand. She has a small puncture wound to the dorsal aspect of her right third proximal phalanx with surrounding erythema, warmth, and edema. She does have tenderness to the area. She has streaking that goes up her dorsal right forearm to the elbow. She is otherwise nontoxic-appearing. X-ray of the hand will be obtained, but is constantly obtained and she will be given IV vancomycin. Tetanus will be updated. Obtained, CBC shows mild anemia with a hemoglobin of 11.8, BMP is unremarkable. No leukocytosis, x-ray without any subcutaneous air. I will place her on a course of Augmentin. She is to follow-up with her PCP. Strict return instructions were discussed with her and patient discharged home in stable condition. Lab Data Labs: Laboratory Results - last 24 hr 09/27/24 11:55 WBC 9.2 RBC 3.59 L Hgb 11.8 L Hct 34.8 L MCV 96.9 MCH 32.9 H MCHC 33.9 RDW Std Deviation 49.0 H RDW Coeff of Jose 13.8 Plt Count 421 MPV 8.3 Immature Gran % (Auto) 0.300 Neut % (Auto) 74.4 H Lymph % (Auto) 16.9 L [place] % (Auto) 8.2 Eos % (Auto) 0.1 Baso % (Auto) 0.1 Absolute Neuts (auto) 6.8 Absolute Lymphs (auto) 1.55 Nucleated RBC % 0 Sodium 141 Potassium 3.7 Chloride 108 H Carbon Dioxide 27.0 Anion Gap 6 BUN 8 Creatinine 0.73 Estim Creat Clear Calc 64.56 Est GFR (MDRD) Af Amer 104 Est GFR (MDRD) Non-Af 86 BUN/Creatinine Ratio 11.0 Glucose 101 Calcium 9.2 Radiography X-Ray: Read by ED Physician Diagnostic Testing: Clinical Impression(s) from Imaging Studies Hand X-Ray 09/27/24 12:20 IMPRESSION: Unremarkable examination of the hand. Reading Location: [id number] <Dr. Tomasz Calvert MD - Last Filed: 09/27/24 12:45> [facility] Lab Data Attestation: I reviewed the patient's lab results. Labs: Laboratory Results - last 24 hr 09/27/24 11:55 WBC 9.2 RBC 3.59 L Hgb 11.8 L Hct 34.8 L MCV 96.9 MCH 32.9 H MCHC 33.9 RDW Std Deviation 49.0 H RDW Coeff of Jose 13.8 Plt Count 421 MPV 8.3 Immature Gran % (Auto) 0.300 Neut % (Auto) 74.4 H Lymph % (Auto) 16.9 L [place] % (Auto) 8.2 Eos % (Auto) 0.1 Baso % (Auto) 0.1 Absolute Neuts (auto) 6.8 Absolute Lymphs (auto) 1.55 Nucleated RBC % 0 Sodium 141 Potassium 3.7 Chloride 108 H Carbon Dioxide 27.0 Anion Gap 6 BUN 8 Creatinine 0.73 Estim Creat Clear Calc 64.56 Est GFR (MDRD) Af Amer 104 Est GFR (MDRD) Non-Af 86 BUN/Creatinine Ratio 11.0 Glucose 101 Calcium 9.2 Radiography Diagnostic Testing: Clinical Impression(s) from Imaging Studies Hand X-Ray 09/27/24 12:20 IMPRESSION: Unremarkable examination of the hand. Reading Location: [id number] Treatment and Re-Evaluation Comments:: I have personally performed a face to face assessment of the patient and have reviewed the VELASQUEZ Note. I performed a substantive portion of the visit including all aspects of the following. My amin findings include: History is accidentally bitten by her own dog in the right hand last night when the dog was frightened by whether. Dog has not been ill. About 4 to 5 hours after the bite she started experiencing pain and now this morning she has more redness and swelling in the area along with streaking going up her forearm. No fevers, chills, systemic symptoms. Exam is small puncture wound without any expressible discharge dorsum of the right middle finger proximal phalanx, does not involve the joint. There is pain, erythema, swelling around this area and into the third MCPJ, but with passive flexing and active extending, there is no significant discomfort to suggest a tenosynovitis. There is lymphangitis that goes of multiple different areas but not all the way to the elbow or beyond it and these areas are nontender and there is no palpable cords. No epitrochlear lymphadenopathy. All compartment soft and nondistended. There is also an abrasion to the radial aspect of the right index finger that is nontender and does not appear to be infected. No other lesions. Medical Decison Making labs reviewed. Also reviewed three-view x-ray of the right hand which mitral rotation shows some soft tissue swelling along the right middle finger MCPJ but no subcutaneous emphysema to suggest a necrotizing infection here. She was given IV vancomycin, will place her on oral Augmentin, but I think she can continue doing this at home watching for signs of systemic involvement, for which she should return. Short latency period is likely Pasturella species, may also be streptococcal in this nonpurulent infection. Other additions or changes: [None] Discharge Plan Triage Chief Complaint: Bite ED Midlevel Provider: Keily Shipley ED Provider: Tomasz Calvert Dx/Rx/DC Orders Clinical Impression: Dog bite of right hand including fingers with infection, Immunization, tetanus-diphtheria Instructions: ED Dog Bite Prescriptions: New amoxicillin-pot clavulanate 875-125 mg tablet 875 mg PO Q12H Qty: 20 0RF No Action meloxicam 7.5 mg tablet 7.5 mg PO QDAY Primary Care Provider: Shaylee Camacho [employer]UCLE[employer] SECURITY OFFICER Referrals: Marquise Anderson DO [Med Staff - Active Staff] - 3-5 Days if not improving (or return to ER if getting worse or fevers) Print Language: Monegasque Disposition Disposition: Home, Self Care Discharge Date/Time: 09/27/24 14:25
[2024-09-27 12:01] LABS: Absolute Lymphocyte Count 1.55 X10^3/uL (0.83-4.51); Absolute Neutrophil Count 6.8 X10^3/uL (2.0-7.7); Basophil# 0.01 X10^3/uL; Basophil% 0.1 % (0-1); Eosinophil# 0.01 X10^3/uL; Eosinophils% 0.1 % (0-5); Hematocrit 34.8 % (37-47); Hemoglobin 11.8 g/dL (12.0-15.0); Lymphocyte # 1.55 X10^3/ul (0.83-4.51); Lymphocyte % 16.9 % (19-41); Mean Corp Hgb Conc 33.9 g/dL (32-36); Mean Corpuscular Hgb 32.9 pg (27.0-32.0); Mean Corpuscular Volume 96.9 fL (81-99); Mean Platelet Vol. 8.3 fl (6.2-12.0); Monocyte# 0.75 X10^3/uL; Monocyte% 8.2 % (0-10); NRBC Flagged by Analyzer 0 % (0-5); Neutrophil % 74.4 % (47-70); Platelet Count 421 K/mm3 (150-450); RBC Distribution Width CV 13.8 % (11.6-14.6); Red Blood Count 3.59 M/mm3 (4.2-5.4); White Blood Count 9.2 K/mm3 (4.4-11.0)
[2024-09-27] MEDS: Ketorolac 15 MG/ML Vial IV (12:02)
[2024-09-27] MEDS: Diphth,Pertuss(Acell),Tet Vac 0.5 ML Vial IM (12:05)
--- NOTE | 2024-09-27 12:20 | RAD_ITS ---
EXAM: HAND MIN 3 VIEWS CLINICAL HISTORY: Dog bite. Puncture injury to the 2nd and 3rd digits. COMPARISON: None. TECHNIQUE: Three views were obtained. FINDINGS: No fracture is seen. There is no evidence of radiopaque foreign body. RAD/Hand Min 3 Views IMPRESSION: Unremarkable examination of the hand. Reading Location: [id number]
[2024-09-27 12:34] LABS: Anion Gap 6 (5-15); BUN 8 mg/dL (7-18); Calcium,Total 9.2 mg/dL (8.5-10.1); Chloride 108 mmol/L (98-107); Creatinine, Serum 0.73 mg/dL (0.55-1.02); EST Glomerular Filtration Rate 86 mL/min (>60); Est Glom Filt Rate - Afr Amer 104 mL/min (>60); Estimated Creatinine Clearance 64.56 ml/min; Glucose 101 mg/dL (74-106); Potassium 3.7 mmol/L (3.5-5.1); Sodium Level 141 mmol/L (136-145)
[2024-09-27] MEDS: Vancomycin HCl 750 MG in 0.9% Normal Saline (250mL Bag) 250 ML 250 MG IV (12:39)
[2024-09-27 13:15] VITALS: BP 117/78; PULSE 70; RESP 18; TEMP 36.9; O2SAT 100
[2024-09-27 13:16] VITALS: PULSE 73; RESP 19; O2SAT 97
== END 2024-09-27 14:25 | disposition home or self-care (01) ==
PROVIDERS: Physician Assistant; Emergency Provider Emergency Medicine; PCP Registered Nurse; Visit Provider Emergency Medicine
DX: S61.451A Open bite of right hand, initial encounter (principal); M79.641 Pain in right hand; Z87.891 Personal history of nicotine dependence; Z90.710 Acquired absence of both cervix and uterus; Z23 Encounter for immunization; Z90.49 Acquired absence of other specified parts of digestive tract; W54.0XXA Bitten by dog, initial encounter
CPT/HCPCS: 73130; 80048; 85025; 90715; 96365; 96366; 96375; 99284; A4216